=== PATIENT | male | born 1980 | race Caucasian/White ===

== ENCOUNTER 2018-11-03 13:30 | Emergency (ER) | payer SELFPAY ==
[~2018-11-03] VITALS: Ht 185.4 cm; Wt 113.6 kg
[2018-11-03 13:38] VITALS: Ht 185.4 cm; Wt 113.6 kg
[2018-11-03] MEDS ORDERED: TORADOL10 MG PO (17:40)
[2018-11-03 18:25] VITALS: BP 143/80
== END 2018-11-03 18:05 | disposition home or self-care (01) ==
LOC: D.ER 13:30
DX: S61.011A Laceration without foreign body of right thumb without damage to nail, initial encounter (principal); W26.9XXA Contact with unspecified sharp object(s), initial encounter; Y93.89 Activity, other specified; Y92.89 Other specified places as the place of occurrence of the external cause